=== PATIENT | female | born 1995 | race Caucasian/White ===

== ENCOUNTER 2017-09-11 10:02 | Emergency (ER) | payer BC, OTHER ==
[2017-09-11] MEDS ORDERED: DICYCLOMINE 10 MG CAP PO ONE (10:19)
[2017-09-11] MEDS ORDERED: NS 1,000 ML IV ONE (10:19)
--- NOTE | 2017-09-11 10:20 | EDPHY ---
General Time Seen by Provider: 09/11/17 10:09 Narrative: CHIEF COMPLAINT: Vomiting, diarrhea, abdominal cramping HISTORY OF PRESENT ILLNESS: Patient complains of abdominal cramping, nausea, vomiting diarrhea. Symptoms started on Wednesday evening after taking her 1st Vivotif pill for typhoid vaccination. She started feeling nauseated and vomited 2 times. It is described as "stomach acid." She felt a little bit better on but then yesterday she felt worse after eating. She had more vomiting and diarrhea last night. She also had diarrhea this morning. It has been nonbloody. She did not take the subsequent pills due to this. She contacted the prescribing physician who instructed her to stop the medication. She woke this morning with increasing cramping pain in the upper abdomen, thus she went to an urgent care. They performed a physical exam only accepted our facility for higher level of care per she is feeling better after the most recent episode of diarrhea. No trauma or injury. No fever. No other associated complaints or modifying factors. REVIEW OF SYSTEMS: Ten systems reviewed and are negative unless otherwise noted in the HPI PCP: Dr. Huey Contreras SPECIALISTS: None PAST MEDICAL HISTORY: No ongoing diagnoses PAST SURGICAL HISTORY: Tonsillectomy SOCIAL HISTORY: Nonsmoker. [employer] student. Planning for a medical mission to [place] on September 26 FAMILY HISTORY: Noncontributory EXAMINATION General Appearance: Alert, no distress Head: normocephalic, atraumatic Eyes: Pupils equal and round, no conjunctival pallor or injection ENT, Mouth: Mucous membranes moist Neck: Normal inspection, supple, non-tender Respiratory: Lungs are clear to auscultation Cardiovascular: Regular rate and rhythm Gastrointestinal: Abdomen is soft and nondistended. There is tenderness in the upper quadrants. No right lower quadrant tenderness. Negative McBurney. Negative Rovsing. Negative rebound or guarding. No CVA tenderness. Back: non-tender, no bony abnormalities Neurological: A&O, nonfocal, normal gait Skin: Warm and dry, no rash no petechiae or purpura Extremities: Nontender, no pedal edema Psychiatric: Mood and affect normal DIFFERENTIAL DIAGNOSES: Including but not limited to gastritis, enteritis, adverse drug reaction, pancreatitis, infectious diarrhea, appendicitis, cholecystitis, cholelithiasis MDM: 10:20 a.m. Nausea, vomiting, diarrhea and abdominal cramping after starting a typhoid vaccination oral medication, Vivotif. She is starting to feel better after this morning's bowel movement of diarrhea. No fever. No rash. No trauma or injury. Her abdominal exam reveals upper abdominal pain but no lower abdominal pain and is nonsurgical at this time the I have ordered laboratory studies, IV fluid and Bentyl. She is resting comfortably at this time. 11:00 a.m. Laboratory studies are all within normal limits. This includes a normal CBC. I have re-evaluated the patient and she is feeling much better at this time. She has minimal cramping. No pain. Her abdominal exam remains benign. I will trial her with p.o. Challenge of water. I do feel she is stable for discharge home. 11:20 a.m. She is drinking water without difficulty. She continues to feel well would like to go home. She is discharged in stable condition. I provided a school note. We discussed ED precautions. SUPERVISION: Patient was independently examined, but I discussed the case with my secondary supervising physician Dr. Taylor - History Smoking Status: Current some day smoker - Objective Vital Signs: Initial Vital Signs Temperature (C) 99.0 F 09/11/17 10:06 Heart Rate 62 09/11/17 10:06 Respiratory Rate 16 09/11/17 10:06 Blood Pressure 132/86 H 09/11/17 10:06 O2 Sat (%) 98 09/11/17 10:06 O2 Delivery Mode Room Air Allergies/Adverse Reactions: typhoid vaccine [From Vivotif Gaye Vaccine] Allergy (Verified 09/11/17 10:06) Home Medications: Medication Instructions Recorded Dicyclomine [Bentyl 20 MG (*)] 20 mg PO QID PRN #12 tab 09/11/17 Ondansetron Odt [Zofran Odt 4 mg 4 mg PO Q6 PRN #12 tab 09/11/17 (*)] Promethazine HCl [Phenergan] 12.5 mg RC TID PRN #12 supp.rect 09/11/17 Laboratory Results: Laboratory Results 09/11/17 10:15 09/11/17 10:15 09/11/17 09/11/17 09/11/17 10:15 10:15 10:15 WBC 7.94 10^3/uL 10^3/uL (3.80-9.50) RBC 5.27 10^6/uL 10^6/uL (4.18-5.33) Hgb 15.5 g/dL g/dL (12.6-16.3) Hct 45.4 % % (38.0-47.0) MCV 86.1 fL fL (81.5-99.8) MCH 29.4 pg pg (27.9-34.1) MCHC 34.1 g/dL g/dL (32.4-36.7) RDW 12.4 % % (11.5-15.2) Plt Count 351 10^3/uL 10^3/uL (150-400) MPV 8.6 fL L fL (8.7-11.7) Neut % (Auto) 53.6 % % (39.3-74.2) Lymph % (Auto) 38.2 % % (15.0-45.0) Smyth % (Auto) 6.3 % % (4.5-13.0) Eos % (Auto) 1.1 % % (0.6-7.6) Baso % (Auto) 0.5 % % (0.3-1.7) Nucleat RBC Rel Count 0.0 % % (0.0-0.2) Absolute Neuts (auto) 4.26 10^3/uL 10^3/uL (1.70-6.50) Absolute Lymphs (auto) 3.03 10^3/uL H 10^3/uL (1.00-3.00) Absolute Monos (auto) 0.50 10^3/uL 10^3/uL (0.30-0.80) Absolute Eos (auto) 0.09 10^3/uL 10^3/uL (0.03-0.40) Absolute Basos (auto) 0.04 10^3/uL 10^3/uL (0.02-0.10) Absolute Nucleated RBC 0.00 10^3/uL 10^3/uL (0-0.01) Immature Gran % 0.3 % % (0.0-1.1) Immature Gran # 0.02 10^3/uL 10^3/uL (0.00-0.10) Sodium 144 mEq/L mEq/L (135-145) Potassium 4.5 mEq/L mEq/L (3.5-5.2) Chloride 104 mEq/L mEq/L (97-110) Carbon Dioxide 26 mEq/l mEq/l (22-31) Anion Gap 14 mEq/L mEq/L (8-16) BUN 9 mg/dL mg/dL (7-23) Creatinine 0.8 mg/dL mg/dL (0.6-1.0) Estimated GFR > 60 Glucose 93 mg/dL mg/dL (70-100) Calcium 9.6 mg/dL mg/dL (8.5-10.4) Total Bilirubin 1.2 mg/dL mg/dL (0.1-1.4) Conjugated Bilirubin 0.4 mg/dL mg/dL (0.0-0.5) Unconjugated Bilirubin 0.8 mg/dL mg/dL (0.0-1.1) AST 32 IU/L IU/L (14-46) ALT 55 IU/L H IU/L (9-52) Alkaline Phosphatase 65 IU/L IU/L (38-126) Total Protein 8.0 g/dL g/dL (6.3-8.2) Albumin 4.8 g/dL g/dL (3.5-5.0) Lipase 76 IU/L IU/L (23-300) Beta HCG, Qual NEGATIVE Medications Given: Discontinued Medications Dicyclomine HCl (Bentyl) 20 mg PO EDNOW ONE Stop: 09/11/17 10:20 Last Admin: 09/11/17 10:24 Dose: 20 mg Sodium Chloride (Ns) 1,000 mls @ 0 mls/hr IV EDNOW ONE; Wide Open PRN Reason: Protocol Stop: 09/11/17 10:20 Last Admin: 09/11/17 10:24 Dose: 1,000 mls Famotidine/Sodium Chloride (Pepcid 20 Mg (Premix)) 50 mls @ 200 mls/hr IV EDNOW ONE Stop: 09/11/17 10:35 Last Admin: 09/11/17 10:24 Dose: 50 mls Ondansetron HCl (Zofran) 4 mg IVP EDNOW ONE Stop: 09/11/17 10:38 Last Admin: 09/11/17 10:38 Dose: 4 mg Departure - Departure Disposition: Home, Routine, Self-Care Clinical Impression: Nausea vomiting and diarrhea, Drug intolerance Condition: Good Instructions: Dicyclomine (By mouth), Ondansetron (By mouth), Promethazine ( Into the rectum), Clear Liquid Diet (ED), Acute Nausea and Vomiting (ED) Additional Instructions: 1. Nausea medications as prescribed as needed 2. Bentyl as prescribed as needed for abdominal cramping 3. Contact primary care physician for further care and alternative typhoid vaccination 4. Return to this emergency department if her symptoms are not completely resolved within 24 hr or she develops any return of pain, fever Referrals: MERA OSORIO [Primary Care Provider] - As per Instructions Stand Alone Forms: School Excuse Prescriptions: Dicyclomine [Bentyl 20 MG (*)] 20 mg PO QID PRN #12 tab PRN Reason: abdominal pain Ondansetron Odt [Zofran Odt 4 mg (*)] 4 mg PO Q6 PRN #12 tab PRN Reason: Nausea/Vomiting, Use 1st Promethazine HCl [Phenergan] 12.5 mg RC TID PRN #12 supp.rect PRN Reason: Nausea/Vomiting, Can'T Take Po
[2017-09-11] MEDS ORDERED: FAMOTIDINE 20 MG/NACL 50 ML IV ONE (10:21)
[2017-09-11 10:32] LABS: PLATELET COUNT 351 10^3/uL (150-400)
[2017-09-11] MEDS ORDERED: ONDANSETRON 4 MG/2 ML VIAL ONE (10:36)
[2017-09-11] MEDS ORDERED: ONDANSETRON 4 MG/2 ML VIAL IVP ONE (10:37)
[2017-09-11 11:46] VITALS: BP 122/83
== END 2017-09-11 11:45 | disposition home or self-care (01) ==
DX: R11.2 Nausea with vomiting, unspecified (principal); R19.7 Diarrhea, unspecified; T50.A25A Adverse effect of mixed bacterial vaccines without a pertussis component, initial encounter; F17.200 Nicotine dependence, unspecified, uncomplicated
CPT/HCPCS: 96374; J2405